=== PATIENT | female | born 1950 | race Caucasian/White ===

== ENCOUNTER → 2018-03-18 08:00 | Outpatient (CLI) | payer MEDICARE, BC, SELFPAY | PROVIDERS: Visit Provider Psychiatry & Neurology Neurology | DX: G56.12 Other lesions of median nerve, left upper limb (principal); G56.22 Lesion of ulnar nerve, left upper limb | CPT/HCPCS: 95909; 99214 ==

== ENCOUNTER → 2018-04-03 01:38 | Outpatient (CLI) | payer MEDICARE, BC, SELFPAY ==
--- NOTE | 2018-04-03 13:32 | DI.REPORT_ITS ---
SYMPTOMS/DIAGNOSIS: SCREENING, Z12.31 MAMMOGRAMS: Mammograms were interpreted according to the usual protocol including computer analysis with CAD system, tomosynthesis and C view imaging. The breast tissue is heterogeneously radiodense, which lowers the sensitivity of the study. There is no dominant mass. There are no suspicious calcifications and there has been no significant interval change when compared with prior images. SUMMARY: No evidence of malignancy, category 1. Yearly screening mammography is recommended. Breast density category C. MQSA ASSESSMENT OF FINDINGS: Negative. Category 1. Patient will receive a letter notifying them of these results. Bi-RADS category C. The breasts are heterogeneously dense, which may obscure small masses.
== END ==
PROVIDERS: PCP Internal Medicine; Visit Provider Nurse Practitioner Family
DX: Z12.31 Encounter for screening mammogram for malignant neoplasm of breast (principal)
CPT/HCPCS: 77063; 77067

== ENCOUNTER 2018-07-07 15:48 | Outpatient (REF) | payer MEDICARE, BC, SELFPAY ==
--- NOTE | 2018-07-07 15:10 | SKI_PTH ---
PATIENT: Alexandra Jennings LOC: [facility] U#:[id number] AGE/SX: 67/F ROOM: RE07/07/[address]: Kevin Barajas DO : 1950 BED: DIS: 07/07/2018 SPEC #: [id number] RECD: 07/08/18 11:49 STATUS: CHAVA REQ #: [id number] ANTONY: 07/07/18 15:[address]: Kevin Barajas DEPT: Surgical Specimen RECD BY: Anne Hewitt ENTERED: 07/08/18 11:49 SP TYPE: SIDNEY RED DR: Bladimir Monge Tissues: 1 - SKIN BIOPSY(SHAVE/PUNCH) Procedures: SKIN LEVEL 4 Comments: [id number]
== END 2018-07-07 16:08 ==
LOC: LBN 15:48
PROVIDERS: PCP Internal Medicine; Visit Provider Otolaryngology Otolaryngology/Facial Plastic Surgery
DX: L82.0 Inflamed seborrheic keratosis (principal)
CPT/HCPCS: 88305

== ENCOUNTER 2019-02-13 12:29 | Outpatient (REF) | payer MEDICARE, BC, SELFPAY ==
[2019-02-13 21:04] LABS: Calculated LDL 115 mg/dL; Cholesterol 225 mg/dL (50-200); HDL Cholesterol 101 mg/dL (40-60); TSH (W/Ref FT4) 0.83 uIU/mL (0.358-3.74); Triglyceride 49 mg/dL (30-150)
== END 2019-02-13 12:49 ==
LOC: NCHCN 12:29
PROVIDERS: PCP Nurse Practitioner Family; Visit Provider Nurse Practitioner Family
DX: A63.0 Anogenital (venereal) warts (principal); E04.2 Nontoxic multinodular goiter; E05.20 Thyrotoxicosis with toxic multinodular goiter without thyrotoxic crisis or storm
CPT/HCPCS: 80061; 83721; 84443

== ENCOUNTER 2019-04-17 01:10 | Outpatient (CLI) | payer MEDICARE, BC, SELFPAY ==
--- NOTE | 2019-04-17 09:12 | DI.US_ITS ---
SYMPTOM/DIAGNOSIS: MULTINODULAR THYROID KGOITER E04.2 THYROID ULTRASOUND: Comparison is made with January. The right lobe measures 4.9 x 2.1 x 1.9 cm. The left lobe measures 4.2 x 1.4 x 1.4 cm. A peripherally calcified nodule is again noted in the right lobe measuring 18 mm. Other smaller cysts are seen in both lobes. IMPRESSION: Stable peripherally calcified right thyroid nodule.
--- NOTE | 2019-04-17 09:29 | DI.MAMMO_ITS ---
SYMPTOMS/DIAGNOSIS: SCREENING, Z12.31 BILATERAL SCREENING MAMMOGRAM: Mammograms were interpreted according to the usual protocol including computer analysis with CAD system, tomosynthesis and C view imaging. Comparison is made with exams from 2011 through 2018. The breasts are composed of heterogeneously dense fibroglandular tissue, breast density category C. No suspicious masses or suspicious microcalcifications are seen. There has been no significant change. IMPRESSION: Category 1, negative mammogram. Yearly screening mammography is recommended. [facility] ASSESSMENT OF FINDINGS: Negative. Category 1. Patient will receive a letter notifying them of these results. Bi-RADS category C. The breasts are heterogeneously dense, which may obscure small masses.
== END 2019-04-17 01:30 ==
PROVIDERS: PCP Internal Medicine; Visit Provider Nurse Practitioner Family
DX: E04.2 Nontoxic multinodular goiter (principal); Z12.31 Encounter for screening mammogram for malignant neoplasm of breast
CPT/HCPCS: 77063; 77067; 76536

== ENCOUNTER 2020-02-29 22:04 | Outpatient (REF) | payer MEDICARE, BC, SELFPAY ==
[2020-02-29 21:39] LABS: Calculated LDL 123 mg/dL (<100); Cholesterol 240 mg/dL (<200); HDL Cholesterol 105 mg/dL (40-60); TSH (W/Ref FT4) 0.67 uIU/mL (0.36-3.74); Triglyceride 64 mg/dL (<150)
[2020-02-29 21:56] LABS: Vitamin D 25 Total 34.1 ng/ml (30-100)
== END 2020-02-29 22:24 ==
LOC: NCHCN 22:04
PROVIDERS: PCP Internal Medicine; Visit Provider Nurse Practitioner Family
DX: E78.5 Hyperlipidemia, unspecified (principal); M54.5 Low back pain; A63.0 Anogenital (venereal) warts; Z86.010 Personal history of colon polyps; M65.819 Other synovitis and tenosynovitis, unspecified shoulder; E04.2 Nontoxic multinodular goiter; M85.80 Other specified disorders of bone density and structure, unspecified site; Z00.00 Encounter for general adult medical examination without abnormal findings
CPT/HCPCS: 80061; 82306; 84443

== ENCOUNTER → 2020-04-28 08:52 | Outpatient (BNVA) | payer MEDICARE, BC, SELFPAY | PROVIDERS: PCP Internal Medicine; Referring Provider Internal Medicine; Visit Provider Physical Therapy Assistant | DX: Z12.11 Encounter for screening for malignant neoplasm of colon (principal); Z86.010 Personal history of colon polyps ==

== ENCOUNTER 2020-05-12 12:12 | Day surgery (SDC) | payer MEDICARE, BC, SELFPAY ==
[2020-05-12 12:31] VITALS: BP 137/86; PULSE 76; RESP 16; TEMP 36.5; O2SAT 97
[2020-05-12] MEDS: Lactated Ringers 1,000 ML 80 ML IV (12:58)
--- NOTE | 2020-05-12 13:35 | W.COLOREPORT ---
Date of service: 05/12/20 Time of Service: 13:35 Colonoscopy Report Date of procedure: 05/12/20 Pre-op diagnosis general: CRC screen Post-op diagnosis procedure note: other (diverticula/polyp ) Procedure: ce adn Surgeon: Yasmeen Saucedo Anesthesia proc note operative: GETA Estimated blood loss (mL): 1 Pathology: other Complications: None Disposition: no change Prep: Miralax/Dulcolax Retraction Time: 12mins Procedure Description: After informed consent was obtained the patient was taken to the procedure room and placed in a left decubitous position. Monitors were applied and a time out was done. The patients name, date of , procedure, allergies to medications and metal in their body was reviewed. The patient was then sedated. Once sedated and comfortable a rectal exam was done. External exam was normal. Internal exam revealed a normal sphincter tone and no palpable masses. The scope was then introduced and retrofelexed. No internal hemorrhoids were identified. The scope was then advanced to the cecum w/ difficulty. The TI and appendiceal orifice were identified. The prep was good. The scope was then slowly retracted over 10 minutes back into the rectum. Polyps x1 were removed at 90 w/ cold biting forceps. <5mm in size. All specimens are retrieved and no bleeding is noted. There are no AVM's or diverticula present. The scope was removed and the patient was woken up and taken back to Same day surgery in stable condition. The patient tolerated the procedure well and there were no immediate complications. Follow up: The patient should follow up in 5 year- path pd, if she is healthy for anesthesia, unless they develop changes in bowel habits or other new gastrointestinal complaints.
--- NOTE | 2020-05-12 14:19 | BOWEL_PTH ---
PATIENT: Alexandra Jennings LOC: [facility] U#:[id number] AGE/SX: 69/F ROOM: RE05/12/[address]: Yasmeen Saucedo : 1950 BED: DIS: 05/12/2020 SPEC #: [id number] RECD: 05/12/20 17:30 STATUS: CHAVA REQ #: [id number] ANTONY: 05/12/20 14:[address]: Yasmeen Saucedo DEPT: Surgical Specimen RECD BY: Anne Hewitt ENTERED: 05/12/20 17:30 SP TYPE: Bowel OTHR DR: Bladimir Monge Tissues: 1 - BIOPSY BOWEL Procedures: GROSS AND MICRO LEVEL 4 Comments: [id number]
--- NOTE | 2020-05-12 14:35 | W.PM.DSUDISC ---
Discharge Plan Disposition Patient Disposition: HOME Condition: Good Discharge Details Reason For Visit: colon scope Attending Provider: Yasmeen Saucedo Primary Care Provider: Bladimir Monge Home Meds and New Rx's Prescriptions: No Action Fish Oil 900 mg-360 mg- 455 mg-1,000 mg capsule 1 cap PO DAILY RF: 0 calcium carbonate [Calcium 600] 600 mg calcium (1,500 mg) tablet 600 mg PO DAILY RF: 0 Systane Balance 0.6 % drops 1 drp OP DAILY PRNRF: 0 Discharge Instructions Additional Instructions: Findings:small polyp at 90cm- adjacent to cecum Follow up: Will send a letter in 2-3 wks w/ results of the pathology and when to repeat the scope. Please call if you develop: fevers >101.5 Nausea or Vomiting Abdominal pain that is not transient DAY SURGERY UNIT POST COLONOSCOPY INSTRUCTIONS 1. Because there will be medication in your system for the next 24 hours, you may feel a little sleepy. Your coordination will be affected. Therefore: a. Do not drive or operate dangerous equipment for 24 hours. b. Do not drink alcohol beverages for 24 hours (not even beer). c. Plan to go home and rest for the day. 2. Generally there are no restrictions on your activity after a day or so has gone by, but you may feel a bit fatigued for a few days. 3 After you arrive home you may have a light meal and return to a normal diet as you can tolerate it without feeling sick to your stomach. 4. After surgery, you may feel pain or discomfort. This should be only transient, but if it persists please contact your doctor. 5. If there are any questions regarding the findings of your procedure, please feel free to contact your doctor. 6. If you are unable to contact your doctor with a problem, contact the hospital at [phone]. 7. Continue all your regular medications unless directed otherwise. I understand the above instructions and have no questions. Signature of Patient or Responsible Adult Escort Date/Time Name of Responsible Adult Escort Signature of Nurse Date/Time Activity:: No lifting over 20#'s or strenuous activity x 24 hrs Diet:: small light meals x 24hrs Discharge Orders Discharge Orders: Discharge Order (Routine); Ordered 05/12/20 Ordered By: Yasmeen Saucedo DS: Diagnosis Discharge Diagnosis (1) TUBULAR ADENOMA: Status: None
[2020-05-12 15:03] VITALS: BP 135/67; PULSE 64; RESP 16; TEMP 36.6; O2SAT 99
== END 2020-05-12 15:20 | disposition home or self-care (01) ==
PROVIDERS: PCP Internal Medicine; Visit Provider Surgery
PROC: 0DJD8ZZ Inspection of Lower Intestinal Tract, Via Natural or Artificial Opening Endoscopic (ICD-10-PCS; CPT 45378; principal; 2020-05-12 13:45)
DX: Z12.11 Encounter for screening for malignant neoplasm of colon (principal); K57.30 Diverticulosis of large intestine without perforation or abscess without bleeding; K63.5 Polyp of colon
CPT/HCPCS: 45380; 88305; J2001

== ENCOUNTER 2020-05-18 08:56 | Outpatient (CLI) | payer MEDICARE, BC, SELFPAY ==
--- NOTE | 2020-05-18 15:22 | DI.MAMMO_ITS ---
EXAM: MG MAMMO SCREENING CLINICAL HISTORY: SCREENING, Z12.39 TECHNIQUE: Bilateral full field digital CC and MLO mammographic images were obtained with 3D tomosyn thesis and utilizing computer aided detection (CAD). COMPARISON: Available for comparison. FINDINGS: Masses/Architectural Distortion: None seen. Microcalcifications: No suspicious pleomorphic-type are seen. Skin Thickening/Nipple Retraction: None. IMPRESSION: 1. No significant interval change with no specific features of malignancy noted. 2. Unless there is more urgent need, screening mammography is recommended, as per [place] [employer] guidelines. BI-RADS Category 1 - Negative Breast Density - Category C - Heterogeneously dense The mammogram demonstrates the patient's breast tissue is dense. Dense breast tissue is very common a nd is not abnormal but dense breast tissue can make it harder to find cancer on a mammogram. Also, de nse breast tissue may increase their breast cancer risk. This information about the result of the [facility] mogram report was provided to the patient to raise their awareness. Use this report when you speak wi th the patient about their risks for breast cancer, which includes their family history. At that time , you may recommend for more screening tests (Ultrasound or MRI) as they might be useful based on the ir risk. A negative radiographic report should not delay biopsy if a dominant or clinically suspicious mass is present. Up to ten percent of cancers are not identified on mammography. A negative report may reinforce clinical impression. Adenosis and dense breasts may obscure an underlying neoplasm. False positive reports average 6 to 10%. Patient will receive a letter notifying them of these results.
== END 2020-05-18 09:16 ==
PROVIDERS: PCP Internal Medicine; Visit Provider Nurse Practitioner Family
DX: Z12.31 Encounter for screening mammogram for malignant neoplasm of breast (principal)
CPT/HCPCS: 77063; 77067

== ENCOUNTER 2021-05-08 14:36 | Outpatient (REF) | payer MEDICARE, BC, SELFPAY ==
[2021-05-08 15:10] LABS: Calculated LDL 127 mg/dL (<100); Cholesterol 243 mg/dL (<200); HDL Cholesterol 104 mg/dL (40-60); TSH (W/Ref FT4) 0.38 uIU/mL (0.36-3.74); Triglyceride 64 mg/dL (<150)
== END 2021-05-08 14:37 | disposition home or self-care (01) ==
LOC: NCHCN 14:36
PROVIDERS: PCP Internal Medicine; Visit Provider Nurse Practitioner Family
DX: E04.2 Nontoxic multinodular goiter (principal); E78.5 Hyperlipidemia, unspecified
CPT/HCPCS: 80061; 84443

== ENCOUNTER 2021-05-24 01:03 | Outpatient (CLI) | payer MEDICARE, BC, SELFPAY ==
--- NOTE | 2021-05-24 | DI.MAMMO_ITS ---
Exam(s) MAMMO SCREENING EXAM: MAMMO SCREENING CLINICAL HISTORY: SCREENING, Z12.39 TECHNIQUE: Bilateral full field digital CC and MLO mammographic images were obtained with 3D tomosyn thesis and utilizing computer aided detection (CAD). COMPARISON: Available for comparison. FINDINGS: Masses/Architectural Distortion: None seen. Microcalcifications: No suspicious pleomorphic-type are seen. Skin Thickening/Nipple Retraction: None. IMPRESSION: 1. No significant interval change with no specific features of malignancy noted. 2. Unless there is more urgent need, screening mammography is recommended, as per [place] [employer] guidelines. BI-RADS Category 1 - Negative Breast Density - Category C - Heterogeneously dense Breast density category C or D implies that the patient has dense breast tissue. Dense breast tissue is very common and is not abnormal but dense breast tissue can make it harder to find cancer on a ma mmogram. Also, dense breast tissue may increase their breast cancer risk. This information about the result of the mammogram report was provided to the patient to raise their awareness. Use this report when you speak with the patient about their risks for breast cancer, which includes their family hist ory. At that time, you may recommend for more screening tests (Ultrasound or MRI) as they might be us eful based on their risk. A negative radiographic report should not delay biopsy if a dominant or clinically suspicious mass is present. Up to ten percent of cancers are not identified on mammography. A negative report may reinforce clinical impression. Adenosis and dense breasts may obscure an underlying neoplasm. False positive reports average 6 to 10%. Patient will receive a letter notifying them of these results.
== END 2021-05-24 01:23 ==
PROVIDERS: PCP Internal Medicine; Visit Provider Nurse Practitioner Family
DX: Z12.31 Encounter for screening mammogram for malignant neoplasm of breast (principal); R92.8 Other abnormal and inconclusive findings on diagnostic imaging of breast
CPT/HCPCS: 77063; 77067

== ENCOUNTER 2022-04-11 09:38 | Outpatient (REF) | payer MEDICARE, BC, SELFPAY ==
[2022-04-11 16:36] LABS: Hemoglobin A1C 5.9 % (<5.7)
[2022-04-11 17:35] LABS: Calculated LDL 113 mg/dL (<100); Cholesterol 228 mg/dL (<200); HDL Cholesterol 106 mg/dL (40-60); TSH (W/Ref FT4) 1.15 uIU/mL (0.36-3.74); Triglyceride 45 mg/dL (<150)
== END 2022-04-11 09:39 | disposition home or self-care (01) ==
LOC: NCHCN 09:38
PROVIDERS: PCP Internal Medicine; Visit Provider Nurse Practitioner Family
DX: E78.5 Hyperlipidemia, unspecified (principal); R03.0 Elevated blood-pressure reading, without diagnosis of hypertension
CPT/HCPCS: 80061; 83036; 84443

== ENCOUNTER → 2022-06-06 01:42 | Outpatient (CLI) | payer MEDICARE, BC, SELFPAY ==
--- NOTE | 2022-06-06 11:43 | DI.MAMMO_ITS ---
Exam(s) MAMMO SCREENING EXAM: MAMMO SCREENING CLINICAL HISTORY: SCREENING MAMMO Z12.31 TECHNIQUE: Mammograms were interpreted according to the usual protocol including computer analysis w Plink CAD system, tomosynthesis and C-view imaging. COMPARISON: 2012 through 2020 FINDINGS: The breasts are composed of heterogeneously dense fibroglandular densities, Breast Density category C . No suspicious masses or suspicious microcalcifications are seen. No skin thickening or abnormal axillary lymph nodes are seen. There has been no significant change from prior exams. IMPRESSION: BI-RADS Category 1, Negative mammogram. Yearly screening mammography is recommended. Breast Density Category C, heterogeneously Dense. The mammogram demonstrates the patient's breast tissue is dense. Dense breast tissue is very common a nd is not abnormal but dense breast tissue can make it harder to find cancer on a mammogram. Also, de nse breast tissue may increase breast cancer risk. This information about the result of the mammogram report was provided to the patient to raise their awareness. Use this report when you speak with the patient about their risks for breast cancer, which includes their family history. At that time, you may recommend additional screening tests (Ultrasound or MRI) as they might be useful based on their r isk. A negative radiographic report should not delay biopsy if a dominant or clinically suspicious mass is present. Up to ten percent of cancers are not identified on mammography. A negative report may reinforce clinical impression. Adenosis and dense breasts may obscure an underlying neoplasm. False positive reports average 6 to 10%.
== END ==
PROVIDERS: PCP Internal Medicine; Visit Provider Nurse Practitioner Family
DX: Z12.31 Encounter for screening mammogram for malignant neoplasm of breast (principal); R92.8 Other abnormal and inconclusive findings on diagnostic imaging of breast
CPT/HCPCS: 77063; 77067

== ENCOUNTER 2023-02-26 17:32 | Outpatient (REF) | payer MEDICARE, BC, SELFPAY ==
[2023-02-26 14:41] LABS: TSH (W/Ref FT4) 0.99 uIU/mL (0.36-3.74)
[2023-02-26 14:46] LABS: Vitamin D 25 Total 22.5 ng/mL (30-100)
[2023-02-26 15:30] LABS: Hemoglobin A1C 5.8 % (<5.7)
== END 2023-02-26 17:33 | disposition home or self-care (01) ==
LOC: NCHCN 17:32
PROVIDERS: PCP Internal Medicine; Visit Provider Nurse Practitioner Family
DX: G47.62 Sleep related leg cramps (principal); M85.80 Other specified disorders of bone density and structure, unspecified site; I10 Essential (primary) hypertension; E78.5 Hyperlipidemia, unspecified; M54.50 Low back pain, unspecified; E04.2 Nontoxic multinodular goiter; R73.03 Prediabetes; Z86.010 Personal history of colon polyps
CPT/HCPCS: 82306; 83036; 84443

== ENCOUNTER → 2023-03-26 12:45 | Outpatient (BNVA) | payer MEDICARE, BC, SELFPAY | PROVIDERS: PCP Internal Medicine; Referring Provider Internal Medicine; Visit Provider Surgery | DX: Z12.11 Encounter for screening for malignant neoplasm of colon (principal); Z86.010 Personal history of colon polyps ==

== ENCOUNTER 2023-04-11 06:06 | Day surgery (SDC) | payer MEDICARE, BC, SELFPAY ==
--- NOTE | 2023-04-10 20:56 | W.PM.DSUDISC ---
Date of service: 04/11/23 Time of Service: 08:09 Discharge Plan Disposition Patient Disposition: Home Condition: Good Discharge Details Reason For Visit: Colonoscopy Attending Provider: Nilo Masters Primary Care Provider: Bladimir Monge Home Meds and New Rx's Prescriptions: Continued calcium carbonate [Calcium 600] 600 mg calcium (1,500 mg) tablet 600 mg PO DAILY amlodipine [Norvasc] 5 mg tablet 5 mg PO DAILY magnesium citrate 100 mg capsule 100 mg PO DAILY Systane Balance 0.6 % drops 1 drp OP DAILY PRN Discontinued bisacodyl [Dulcolax (bisacodyl)] 5 mg tablet,delayed release (DR/EC) 5 mg PO ONCE Qty: 4 0RF Rx Instructions: Take as directed for your colonoscopy polyethylene glycol 3350 17 gram powder in packet 255 g PO DAILY Qty: 15 0RF Rx Instructions: Mix 255 gm in 64 oz of gatorade or juice. Drink as directed Discharge Instructions Additional Instructions: Alexandra, we were able to complete your colonoscopy today without any problems at all. The quality of your prep was excellent. Generally things look fantastic. I did see 1 very small area of an abnormality that could be an early polyp, or perhaps just some inflammation from the bowel prep. I removed this. The specimen will be sent off for analysis, and when I have the results I will be in touch with my final recommendations. 1. If tolerated, consume a soft, low fiber diet for 1-2 days. 2. Do not drive, drink alcohol, operate machinery, make critical decisions, or do activities that require coordination or balance for 24 hours. 3. Because air was put into your colon during the procedure, expelling air from your rectum (passing gas or farting) is normal. 4. You may not have a bowel movement for 1-3 days because of the colonoscopy prep. This is normal. 5. Go directly to the emergency room if you notice any of the following: Develop chills (warm to touch), or if you have a thermometer and your temperature is above 101 Difficulty breathing or difficultly swallowing Persistent vomiting Severe abdominal pain, other than gas cramps Severe chest pain Black, tarry stools Any bleeding ? exceeding one tablespoon 6. Call your physician if the site where your intravenous was started becomes red, swollen, painful, and warm to touch. 7. Your physician has reviewed your pre-procedure medications. Please continue to take those medications as previously ordered. You will be given specific information/education regarding any changes to your medications before leaving. Activity:: Activity as Tolerated Diet:: As Tolerated Discharge Orders Discharge Orders: Discharge Order (Routine); Ordered 04/10/23 Ordered By: Nilo Masters DS: Diagnosis Discharge Diagnosis (1) Screening for colon cancer: Status: Acute Asessment and Plan: I will follow-up on biopsy results
--- NOTE | 2023-04-10 20:58 | COLE_ITS ---
Date of service: 04/11/23 Time of Service: 08:13 Colonoscopy Report Date of procedure: 04/11/23 Pre-op diagnosis general: Screening colonoscopy Post-op diagnosis procedure note: other (Colon polyp) Procedure: Colonoscopy with polypectomy Surgeon: Nilo Masters Anesthesia Type: General:No Airway Estimated blood loss (mL): 5 Pathology: other (0.5 cm polyp at 30 cm from the anus) Complications: None Disposition: same day Indications: Alexandra is a 72-year-old woman with a history of a tubulovillous adenoma who needs her next screening colonoscopy Prep: Miralax/Dulcolax Procedure Start Time: 07:36 Procedure End Time: 07:58 Retraction Time: 16 Findings: 0.25 cm polyp at 30 cm from the anus Procedure Description: After the induction of monitored anesthetic care, and with the patient in left lateral decubitus position, I began by performing an external anorectal exam.? Perineum and skin were normal, as was the anal verge.? There was no evidence of external hemorrhoids.? Next, I performed a digital rectal exam.? I did not a ppreciate any abnormal findings.? Next, I advanced a colonoscope into the rectal vault.? I performed retroflexion.? This was normal.? Using insufflation, I then advanced the colonoscope beyond the rectal folds and into the sigmoid colon before advancing towards the cecum.? The quality of the prep was excellent.? The scope was noted to be in the cecum by identification of the ileocecal valve and appendiceal orifice.? I then began withdrawing the colonoscope using repeated irrigation as necessary for full evaluation of the colonic mucosa. Around 30 cm from the anal verge I identified a 0.25 cm polyp. ?It appeared sessile in character. ?I was able to remove this with a cold forcep polypectomy. ?I examined the site, and there was minimal bleeding. ?Once this was completed, I continued to withdraw the scope and examine the remainder of the colonic mucosa.?Once the scope was withdrawn to the level of the rectum, great care was taken to examine portions of the rectal folds.? Finally, the scope was withdrawn and the patient was brought to the same-day surgery recovery unit as the anesthetic wore off. ?The findings and instructions were shared with the patient prior to discharge.
[2023-04-11 06:17] VITALS: BP 143/80; PULSE 60; RESP 17; TEMP 36.6; O2SAT 97
[2023-04-11] MEDS: Lactated Ringers 1,000 ML 80 ML IV (06:35)
--- NOTE | 2023-04-11 06:41 | W.ANESPRE ---
General Info Date of Service Date Performed: 04/11/23 Height: 5 ft 8 in Weight: 55.4 kg Body Mass Index (BMI): 18.6 Surgical Procedure: Operation Date: 04/11/23 07:35 Proposed Procedure Side Surgeon p Rosalba Masters MD Meds Allergies and Home Medications Allergies Allergy/AdvReac Type Severity Reaction Status Date / Time No Known Allergies Allergy Verified 04/11/23 06:22 Home Medication Medication Instructions Recorded propylene glycol 0.6 % eye drops 1 drp ophthalmic (eye) DAILY PRN 04/01/20 (Systane Balance) calcium carbonate 600 mg calcium 600 mg PO DAILY 04/28/20 (1,500 mg) tablet (Calcium) amlodipine 5 mg tablet (Norvasc) 5 mg PO DAILY 06/13/22 magnesium citrate 100 mg capsule 100 mg PO DAILY 06/13/22 Current Visit Medications: Current Medications Generic Name Dose Route Start Last Admin Trade Name Freq PRN Reason Stop Dose Admin Hyoscyamine Sulfate 0.125 mg 04/10/23 20:59 Hyoscyamine 0.125 Mg Sl/Oral/Chew SL 05/10/23 20:58 DIRECTED PRN Ringer's Solution 1,000 mls @ 80 mls/hr 04/11/23 06:00 04/11/23 06:35 IV 05/10/23 23:59 80 mls/hr INFUSION MARISOL Administration IV Miscellaneous Supplies 1 each 04/11/23 06:00 Iv Access IV 05/10/23 23:59 DIRECTED MARISOL Ondansetron HCl 4 mg 04/10/23 20:59 Ondansetron 4 Mg/2 Ml Vial IVP 05/10/23 20:58 Q4H PRN PRN Nausea / Vomiting Sodium Chloride 0 ml 04/11/23 06:00 Normal Saline Flush 10 Ml Syr IV 05/10/23 23:59 PRN PRN Sodium Chloride 0 ml 04/11/23 06:00 Normal Saline 10 Ml Vial IJ 05/10/23 23:59 DIRECTED PRN Sterile Water 0 ml 04/11/23 06:00 Water,Injection,Sterile 10 Ml Vial IJ 05/10/23 23:59 DIRECTED PRN PFSH Active Problems Active Problems: Problem Status Onset Code Screening for colon cancer Z12.11 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 Sessile colonic polyp ~05/12/20 K63.5 Rotator cuff tendonitis M75.80 Neoplasm of unspecified behavior of bone, soft tissue, and skin D49.2 Idiopathic peripheral neuropathy 05/22/16 G60.9 Medical History Medical History Genital warts History of small bowel obstruction Hyperlipidemia Hyperplastic colon polyp (~2012) Leg cramps Low back pain Multinodular thyroid Osteopenia Peripheral neuropathy Surgical History Surgical History Colonoscopy - IV Sedation (07/14/10) 07/14/10 07/27/2013 Excision, Lipoma THIGH History of colonoscopy (~05/12/20) History of laparoscopy for small bowel obstruction Tobacco Smoking/Tobacco Use Status: Never Alcohol Alcohol Intake: current Alcohol intake frequency: holidays/special occasions only Substance Use Substance use: Never Substance use type: does not use Vital Signs and Lab Results Vital Signs Most Recent Vital Signs in EMR: Most Recent Vital Signs Temp Pulse Resp BP Pulse Ox 36.6 C 60 17 143/80 H 97 04/11/23 06:17 04/11/23 06:17 04/11/23 06:17 04/11/23 06:17 04/11/23 06:17 Lab Results Blood Type / Crossmatch: No Data to Display Complete Blood Count: No Data to Display Complete Metabolic Panel: No Data to Display Liver Function Panel: No Data to Display Coagulation Panel: No Data to Display Cardiac Panel: No Data to Display Arterial Blood Gas: No Data to Display Venous Blood Gas: No Data to Display Pancreas Panel: No Data to Display Thyroid Panel: No Data to Display Infectious Disease: No Data to Display Blood Cultures: No Data to Display Toxicology Panel: No Data to Display Anesthesia Assessment and Plan Anesthesia History Personal History: No History of Anesthesia Complications Family History: No Family History of Anesthesia Complications Exercise Tolerance Exercise Tolerance: Metabolic Equivalents>4 Pertinent Negatives Pertinent Negatives: No Symptoms of GERD, No Major Cardiovascular Symptoms or Complaints and No Major Pulmonary Symptoms or Complaints Cardiac & Pulmonary Exam Cardiac Exam: Normal S1/S2 Heart Sounds Pulmonary Exam: Clear Bilateral Breath Sounds Implantable Cardiac Device Does patient have a Pacemaker or an ICD?: No Airway Exam Known Difficult Airway: No Mallampati Class: 1 Mouth Opening: Normal (> 3cm) Thyromental Distance: Greater than 3 cm Neck Range of Motion: Full ROM Neck Circumference: Normal Teeth Condition: Normal Dentition ASA Classification ASA Score: ASA 2 Emergency Case?: No NPO Status NPO Status: NPO Clears >2 hours, Solids >8 hours Anesthesia Plan Resuscitation Status: Full Code Anesthesia Technique: General Anesthesia Airway Planned: Natural Airway Monitors Used: Standard Monitors
[2023-04-11 06:46] VITALS: BMI 18.6
--- NOTE | 2023-04-11 07:55 | BOWEL_PTH ---
PATIENT: Alexandra Jennings LOC: [facility] U#:[id number] AGE/SX: 72/F ROOM: RE04/11/[address]: Nilo Masters MD : 1950 BED: DIS: 04/11/2023 SPEC #: [id number] RECD: 04/11/23 11:59 STATUS: CHAVA RE #: [id number] ANTONY: 04/11/23 07:[address]: Nilo Masters DEPT: Surgical Specimen RECD BY: Janis Flaherty ENTERED: 04/11/23 12:00 SP TYPE: Bowel OTHR DR: Bladimir Monge Tissues: 1 - BIOPSY BOWEL Procedures: GROSS AND MICRO LEVEL 4 Comments: [id number]
[2023-04-11 08:03] VITALS: BP 128/70; PULSE 66; RESP 16; TEMP 36.1; O2SAT 98
--- NOTE | 2023-04-11 08:32 | W.ANESPOSTOP ---
Postoperative Evaluation Date, Time and Location Date Performed: 04/11/23 Time Performed: 08:15 Patient Location: Day Surgery Unit Vital Signs Most Recent Imported Vital Signs: Most Recent Vital Signs Temp Pulse Resp BP Pulse Ox 36.1 C L 66 16 128/70 98 04/11/23 08:03 04/11/23 08:03 04/11/23 08:03 04/11/23 08:03 04/11/23 08:03 Pain Score Most Recent Pain Score: Most Recent Pain Score Pain Level 0 04/11/23 06:17 Assessment Mental Status: Awake (Alert & Oriented to Patient Baseline) Airway and Respiratory Function: Patent airway with normal (patient baseline) respiratory exam Cardiovascular Function: Hemodynamically Stable Hydration Status: Adequately Hydrated Nausea & Vomiting: No Nausea or Vomiting Pain: Pt. Denies Any Pain Peripheral Nerve Block: Patient did not receive a nerve block
[2023-04-11 08:33] VITALS: BP 125/81; PULSE 60; RESP 16; TEMP 36.4; O2SAT 98
--- NOTE | 2023-04-11 08:46 | W.ANESPOSTOP ---
Postoperative Evaluation Date, Time and Location Date Performed: 04/11/23 Time Performed: 08:46 Patient Location: Day [facility] Unit Vital Signs Most Recent Imported Vital Signs: Most Recent Vital Signs Temp Pulse Resp BP Pulse Ox 36.4 C L 60 16 125/81 98 04/11/23 08:33 04/11/23 08:33 04/11/23 08:33 04/11/23 08:33 04/11/23 08:33 Most Recent Vital Signs Temp Pulse Resp BP Pulse Ox 36.1 C L 66 16 128/70 98 04/11/23 08:03 04/11/23 08:03 04/11/23 08:03 04/11/23 08:03 04/11/23 08:03 Pain Score Most Recent Pain Score: Most Recent Pain Score Pain Level 0 04/11/23 08:33 Assessment Mental Status: Awake (Alert & Oriented to Patient Baseline) Airway and Respiratory Function: Patent airway with normal (patient baseline) respiratory exam Cardiovascular Function: Hemodynamically Stable Hydration Status: Adequately Hydrated Nausea & Vomiting: No Nausea or Vomiting Pain: Pt. Denies Any Pain Peripheral Nerve Block: Patient did not receive a nerve block
== END 2023-04-11 08:45 | disposition home or self-care (01) ==
PROVIDERS: PCP Internal Medicine; Visit Provider Surgery
PROC: 0DJD8ZZ Inspection of Lower Intestinal Tract, Via Natural or Artificial Opening Endoscopic (ICD-10-PCS; CPT 45378; principal; 2023-04-11 07:30)
DX: Z12.11 Encounter for screening for malignant neoplasm of colon (principal); Z86.010 Personal history of colon polyps; K63.5 Polyp of colon
CPT/HCPCS: 45380; 88305

== ENCOUNTER → 2023-06-12 00:30 | Outpatient (CLI) | payer MEDICARE, BC, SELFPAY ==
--- NOTE | 2023-06-12 | DI.MAMMO_ITS ---
Exam(s) MAMMO SCREENING EXAM: MAMMO SCREENING 3 C CLINICAL HISTORY: SCREENING, Z12.39, FAMILY H/O BREAST CA TECHNIQUE: Bilateral full field digital CC and MLO mammographic images were obtained with 3D tomosyn thesis and utilizing computer aided detection (CAD). COMPARISON: Available for comparison. FINDINGS: Masses/Architectural Distortion: None seen. Microcalcifications: No suspicious pleomorphic-type are seen. Skin Thickening/Nipple Retraction: None. IMPRESSION: 1. No significant interval change with no specific features of malignancy noted. 2. Unless there is more urgent need, screening mammography is recommended, as per [employer] guidelines. BI-RADS Category 1 - Negative Breast Density - Category C - Heterogeneously dense Breast density category C or D implies that the patient has dense breast tissue. Dense breast tissue is very common and is not abnormal but dense breast tissue can make it harder to find cancer on a ma mmogram. Also, dense breast tissue may increase their breast cancer risk. This information about the result of the mammogram report was provided to the patient to raise their awareness. Use this report when you speak with the patient about their risks for breast cancer, which includes their family hist ory. At that time, you may recommend for more screening tests (Ultrasound or MRI) as they might be us eful based on their risk. A negative radiographic report should not delay biopsy if a dominant or clinically suspicious mass is present. Up to ten percent of cancers are not identified on mammography. A negative report may reinforce clinical impression. Adenosis and dense breasts may obscure an underlying neoplasm. False positive reports average 6 to 10%. Patient will receive a letter notifying them of these results.
== END ==
PROVIDERS: PCP Internal Medicine; Visit Provider Nurse Practitioner Family
DX: Z12.31 Encounter for screening mammogram for malignant neoplasm of breast (principal); R92.333 Mammographic heterogeneous density, bilateral breasts; Z80.3 Family history of malignant neoplasm of breast
CPT/HCPCS: 77063; 77067

== ENCOUNTER 2024-02-25 19:01 | Outpatient (REF) | payer MEDICARE, BC, SELFPAY ==
[2024-02-25 14:43] LABS: Bilirubin Negative (Negative); Blood Negative (Negative); Clarity Clear (Clear); Glucose Negative (Negative); Ketones Negative (Negative); Leukocyte Esterase Negative (Negative); Nitrite Negative (Negative); Urobilinogen 0.2 mg/dL (Up to 0.2); pH 5.5 (5-8)
[2024-02-25 15:22] LABS: ALT 28 U/L (14-59); AST 16 U/L (15-37); Alkaline Phosphatase 109 U/L (46-116); Anion Gap 6.8 mmol/L (3-11); BUN 20 mg/dL (7-18); Bilirubin, Total 0.58 mg/dL (0.2-1.0); CO2 30.2 mmol/L (21.0-32.0); CREATININE 0.7 mg/dL (0.55-1.02); Calcium 9.4 mg/dL (8.5-10.1); Calculated LDL 103 mg/dL (<100); Chloride 108 mmol/L (98-107); Cholesterol 225 mg/dL (<200); Glucose 90 mg/dL (74-106); HDL Cholesterol 115 mg/dL (40-60); Potassium 4.5 mmol/L (3.5-5.1); Sodium 145 mmol/L (136-145); TSH (W/Ref FT4) 0.63 uIU/mL (0.36-3.74); Total Protein 7.2 g/dL (6.4-8.2); Triglyceride 38 mg/dL (<150); Vitamin D 25 Total 41.4 ng/mL (30-100)
[2024-02-25 15:48] LABS: COMMENT (LAB VIEW ONLY) 72.54 mg/dL; Microalb ug/mg Crea 3.7 ug/mg Cr
== END 2024-02-25 19:02 | disposition home or self-care (01) ==
LOC: NCHCN 19:01
PROVIDERS: Visit Provider Nurse Practitioner Family
DX: I10 Essential (primary) hypertension (principal); E04.2 Nontoxic multinodular goiter; R73.03 Prediabetes; M85.88 Other specified disorders of bone density and structure, other site
CPT/HCPCS: 80053; 80061; 82306; 81003; 82043; 82570; 83036; 84443

== ENCOUNTER 2024-06-15 01:25 | Outpatient (CLI) | payer MEDICARE, BC, SELFPAY ==
--- NOTE | 2024-06-15 | DI.MAMMO_ITS ---
Exam(s) MAMMO SCREENING EXAM: MAMMO SCREENING CLINICAL HISTORY: Screening, Z12.39 TECHNIQUE: Mammograms were interpreted according to the usual protocol including computer analysis w [id number] CAD system, tomosynthesis and C-view imaging. COMPARISON: 2015 through 2022 FINDINGS: The breasts are composed of heterogeneously dense fibroglandular densities, Breast Density category C . No suspicious masses or suspicious microcalcifications are seen. No skin thickening or abnormal axillary lymph nodes are seen. There has been no significant change from prior exams. IMPRESSION: BI-RADS Category 1, Negative mammogram. Yearly screening mammography is recommended. Breast Density Category C, heterogeneously Dense. The mammogram demonstrates the patient's breast tissue is dense. Dense breast tissue is very common a nd is not abnormal but dense breast tissue can make it harder to find cancer on a mammogram. Also, de nse breast tissue may increase breast cancer risk. This information about the result of the mammogram report was provided to the patient to raise their awareness. Use this report when you speak with the patient about their risks for breast cancer, which includes their family history. At that time, you may recommend additional screening tests (Ultrasound or MRI) as they might be useful based on their r isk. A negative radiographic report should not delay biopsy if a dominant or clinically suspicious mass is present. Up to ten percent of cancers are not identified on mammography. A negative report may reinforce clinical impression. Adenosis and dense breasts may obscure an underlying neoplasm. False positive reports average 6 to 10%.
== END 2024-06-15 01:45 ==
LOC: DI 01:25
PROVIDERS: Visit Provider Nurse Practitioner Family
DX: Z12.31 Encounter for screening mammogram for malignant neoplasm of breast (principal); R92.333 Mammographic heterogeneous density, bilateral breasts; R92.323 Mammographic fibroglandular density, bilateral breasts
CPT/HCPCS: 77063; 77067

== ENCOUNTER 2025-03-15 15:45 | Outpatient (REF) | payer MEDICARE, BC, SELFPAY ==
[2025-03-15 16:16] LABS: COMMENT (LAB VIEW ONLY) 124.35 mg/dL; Microalb ug/mg Crea 12.5 ug/mg Cr
[2025-03-15 16:46] LABS: Calculated LDL 95 mg/dL (<100); Cholesterol 206 mg/dL (<200); HDL Cholesterol 105 mg/dL (>or=50); TSH (W/Ref FT4) 0.68 uIU/mL (0.36-3.74); Triglyceride 30 mg/dL (<150); Vitamin B12 1366 pg/mL (193-986)
[2025-03-15 17:53] LABS: Hemoglobin A1C 5.8 % (<5.7)
== END 2025-03-15 15:46 | disposition home or self-care (01) ==
LOC: NCHCN 15:45
PROVIDERS: PCP Nurse Practitioner Family; Visit Provider Nurse Practitioner Family
DX: R73.03 Prediabetes (principal); E04.2 Nontoxic multinodular goiter; I10 Essential (primary) hypertension
CPT/HCPCS: 80061; 82043; 82570; 82607; 83036; 84443

== ENCOUNTER → 2025-06-18 02:57 | Outpatient (CLI) | payer MEDICARE, BC, SELFPAY ==
--- NOTE | 2025-06-18 08:48 | DI.MAMMO_ITS ---
Exam(s) MAMMO SCREENING EXAM: MAMMO SCREENING CLINICAL HISTORY: SCREENING MAMMO Z12.31. TECHNIQUE: Bilateral full field digital CC and MLO mammographic images were obtained with 3D tomosynthesis and utilizing computer aided detection (CAD). COMPARISON: Prior mammograms were reviewed. FINDINGS: There has been no significant change in the appearance and distribution of the fibroglandular tissue which is again noted be heterogeneously dense.. There are no new spiculated masses nor malignant appearing microcalcification groups. There is no significant architectural distortion nor skin thickening-retraction. IMPRESSION: No radiographic evidence of malignancy. BI-RADS Category 1 - Negative Breast Density - Category C - The breast are heterogeneously dense, which may obscure small masses. Breast density Category C or D implies that the patient has dense breast tissue. Dense breast tissue can make it harder to find cancer on a mammogram. Dense breast tissue is also associated with an increased risk of breast cancer. This information about the result of the mammogram report was provided to the patient to raise their awareness. Use this report when you speak with the patient about their risks for breast cancer, which includes their family history. At that time, you may recommend additional screening tests (Ultrasound or MRI) as these tests may add significant information. A negative radiographic report should not delay biopsy if a dominant or clinically suspicious mass is present. Up to ten percent of cancers are not identified on mammography. A negative report may reinforce clinical impression. Adenosis and dense breasts may obscure an underlying neoplasm. False positive reports average 6 to 10%. Patient will receive a letter notifying them of these results.
== END ==
PROVIDERS: PCP Nurse Practitioner Family; Visit Provider Nurse Practitioner Family
DX: Z12.31 Encounter for screening mammogram for malignant neoplasm of breast (principal); R92.323 Mammographic fibroglandular density, bilateral breasts
CPT/HCPCS: 77063; 77067